=== PATIENT | female | born 1960 | race African-American/Black ===

== ENCOUNTER 2020-09-15 13:25 | Emergency (ER) | payer OTHER ==
[~2020-09-15] VITALS: Ht 160 cm; Wt 78.0 kg
[~2020-09-15 13:25] MED LIST: EXCEDRIN CAPLE1 EACH; LEVOFLOXACIN750 MG PO; PHENERGAN 25 MG25 M1 PO
[2020-09-15 15:22] LABS: HEMATOCRIT 39.2 % (37.0-47.0); HEMOGLOBIN 13.2 gm/dL (12.0-15.0); MCHC 33.8 g/dL (28.0-37.0); MCV 94.8 fL (80.0-100.0); PLATELET COUNT 121 thou/uL (150-400); RBC 4.14 mil/uL (4.20-5.00); RDW 13.5 % (10.5-14.5); WBC 3.9 thou/uL (4.0-11.0)
[2020-09-15 15:31] LABS: ANION GAP 11 mmol/L (7-16); BUN 12 mg/dL (7-18); CALCIUM 8.6 mg/dL (8.5-10.1); CHLORIDE 102 mmol/L (98-107); CO2 26 mmol/L (21-32); CREATININE 1.1 mg/dL (0.6-1.0); GLUCOSE 102 mg/dL (74-106); POTASSIUM 3.2 mmol/L (3.5-5.1); SODIUM 139 mmol/L (136-145)
[2020-09-15 15:39] LABS: TROPONIN-I <0.06 ng/mL (<0.06)
[2020-09-15 15:45] LABS: ABSOLUTE NEUTROPHILS 2.3 thou/uL (1.4-8.2); ANISOCYTOSIS 1+; POLYCHROMASIA OCCASIONAL
[2020-09-15 17:00] VITALS: BP 129/65
--- NOTE | 2020-09-16 09:08 | EKG ---
[facility] [place] [address] ELECTROCARDIOGRAM REPORT Name: REGINO CLEARY Room #: DEP [facility]#: [id number] Admission: 09/15/20 Attend Phys: Discharge: 09/15/20 Date of : 58 Report #: [id number] THIS REPORT FOR: cc: OLGA LIDIA Escalona family physician/PCP OLGA LIDIA Escalona family physician/PCP Rajat De La Torre MD [facility] ~ THIS REPORT FOR: //name// [facility] ED Test Date: 2020-09-15 Test Time: 16:07:18 Pat Name: REGINO CLEARY Department: Room: Gender: F Emergency Medical Dispatcher: : 1960 Requested By: Lesly Dominguez Order Number: [id number] MD: Rajat De La Torre Measurements Intervals [place] Rate: 68 P: -13 IA: 130 QRS: 51 QRSD: 84 T: 45 QT: 446 QTc: 475 Interpretive Statements Sinus rhythm Compared to ECG 02/05/2016 22:39:40 No significant changes Electronically Signed On 09-16-2020 9:08:22 [employer] by Rajat De La Torre [email or web address] <ELECTRONICALLY SIGNED> By: Rajat De La Torre MD, FACC 09/16/20 [id number] 160 Rajat De La Torre MD, [facility] /EPI
== END 2020-09-15 17:03 | disposition home or self-care (01) ==
LOC: ER 13:25
PROVIDERS: Emergency Medicine
DX: M79.10 Myalgia, unspecified site (principal); Z79.82 Long term (current) use of aspirin; Z79.2 Long term (current) use of antibiotics; Z88.8 Allergy status to other drugs, medicaments and biological substances